=== PATIENT | male | born 1965 | race Caucasian/White ===

== ENCOUNTER → 2016-09-09 | Day surgery (SDC) | payer BC ==
[~2016-09-09] MED LIST: Dextrose 5%-Lactated Ringers 1,000 ML IV SCH; Midazolam 1 MG/ML 2 ML SDV ONE; Propofol 200 MG/20 ML SDV ONE; fentaNYL 100 MCG/2 ML SDV ONE
[2016-09-09 09:00] VITALS: BP 137/66
--- NOTE | 2016-09-14 14:39 | OR ---
DATE OF PROCEDURE: 09/09/2016 PREOPERATIVE DIAGNOSIS: Gastroesophageal reflux disease. POSTOPERATIVE DIAGNOSES: 1. Gastroesophageal reflux disease associated with active esophagitis and a small hiatal hernia. 2. Mild antral gastritis. OPERATIVE PROCEDURE: Esophagogastroduodenoscopy with: 1. Biopsies of antrum for CLOtest. 2. Biopsies of esophagogastric junction for histologic evaluation. ANESTHESIA: IV sedation. INDICATION FOR PROCEDURE: This is a 51-year-old male presenting with worsening problems with gastroesophageal reflux disease associated with some ongoing heartburn as well as bilious emesis from time to time. The patient is presently on Nexium 40 mg b.i.d., i.e., maximum medical treatment. Plan is to proceed with an upper GI endoscopy with biopsies as indicated. Potential risks including bleeding and perforation were discussed, and the patient wishes to proceed. DETAILS OF PROCEDURE: The patient was taken to the operating room and placed in a left lateral decubitus position. IV sedation was administered, after which the upper GI endoscope was passed orally through the length of the esophagus and into the stomach with retroflexion view of the fundus, thereafter through the pyloric channel, and into the proximal duodenum. Findings included normal hypopharynx, larynx, upper esophageal sphincter, and esophageal body. At the EG junction, there was a small hiatal hernia present. This was associated with fairly wide open esophagogastric junction, and there was some moderately active reflux disease indicated by some friability and edema of the distal esophageal mucosa. There was no significant upward extension of the gastroesophageal junction mucosal line above the upper gastric folds and no stricturing present. Within the stomach, there was some mild redness in the pre-pyloric area. Otherwise, the pyloric channel and proximal duodenum and junction of 3rd and 4th portions were unremarkable. At this point, biopsies obtained from the antrum and sent for CLOtest for H. pylori. Multiple biopsies were obtained from esophagogastric junction, sent for histologic evaluation. No bleeding from the biopsy sites were seen, and the procedure was then concluded. The patient was taken to the recovery room in satisfactory condition. The patient would appear to have at this point gastroesophageal reflux disease refractory to medical management. We will see the patient back next Thursday to review the findings and develop a treatment plan, which may include a Franca fundoplication. Joe Downing MD /[id number]
== END ==
LOC: JP.SDS 06:09
PROVIDERS: ATTEND Surgery
DX: K31.89 Other diseases of stomach and duodenum (principal); I10 Essential (primary) hypertension; E11.9 Type 2 diabetes mellitus without complications; J45.909 Unspecified asthma, uncomplicated; K21.9 Gastro-esophageal reflux disease without esophagitis
CPT/HCPCS: 43239; 87081; 88305; J2250; J2704; J3010; J7042

== ENCOUNTER 2017-05-21 05:34 | Inpatient (IN) | payer BC ==
[2017-05-21] MEDS ORDERED: Acetaminophen 500 MG Tab PO ONE (06:00)
[2017-05-21] MEDS ORDERED: Celecoxib 200 MG Cap PO ONE (06:00)
[2017-05-21] MEDS ORDERED: Dextrose 5%-Lactated Ringers 1,000 ML IV SCH ×2 (06:00→12:00)
[2017-05-21] MEDS ORDERED: Gabapentin 300 MG Cap PO ONE (06:00)
[2017-05-21] MEDS ORDERED: Scopolamine 1.5 MG Transdermal Patch TOP SCH (06:00)
[2017-05-21] MEDS ORDERED: cefOXitin 2 GM Vial ONE (06:49)
[2017-05-21] MEDS ORDERED: Albuterol/Ipratropium 3.0-0.5 MG/3 ML Neb Soln NEB ONE (07:00)
[2017-05-21] MEDS ORDERED: Ketamine 500 MG/5 ML MDV IV SCH (07:00)
[2017-05-21] MEDS ORDERED: Lidocaine 2% 100 MG/5 ML Syringe IVPUSH ONE (07:00)
[2017-05-21] MEDS ORDERED: Ropivacaine 58 ML, Dexamethasone 8 MG, EPINEPHrine 0.4 MG, Sodium Chloride 0.9% 19.6 ML NERVRT SCH ×4 (07:00)
[2017-05-21] MEDS ORDERED: cefOXitin 2 GM in Premix Bag 1 BAG IV ONE (07:00)
[2017-05-21] MEDS ORDERED: Rocuronium 50 MG/5 ML Vial ONE ×2 (07:05→08:11)
[2017-05-21] MEDS ORDERED: Propofol 200 MG/20 ML SDV ONE (07:05)
[2017-05-21] MEDS ORDERED: Neostigmine Methylsulfate 1 MG/ML 5 ML Syringe ONE (07:05)
[2017-05-21] MEDS ORDERED: Succinylcholine 200 MG/10 ML MDV ONE (07:05)
[2017-05-21] MEDS ORDERED: Ondansetron 4 MG/2 ML SDV ONE (07:05)
[2017-05-21] MEDS ORDERED: Dexamethasone 4 MG/ML SDV ONE (07:05)
[2017-05-21] MEDS ORDERED: Glycopyrrolate 0.2 MG/ML 5 ML MDV ONE (07:05)
[2017-05-21] MEDS ORDERED: Labetalol 20 MG/4 ML Syringe ONE (07:48)
[2017-05-21] MEDS ORDERED: fentaNYL 100 MCG/2 ML SDV ONE (07:53)
[2017-05-21] MEDS ORDERED: Lactated Ringers 1,000 ML ONE (09:26)
[2017-05-21] MEDS ORDERED: Insulin Aspart 100 Units/ML 3 ML Pen SUBCUT ONE (10:00)
[2017-05-21] MEDS ORDERED: hydrOXYzine HCl 100 MG/2 ML SDV IM ONE (10:24)
[2017-05-21] MEDS ORDERED: 50% Dextrose in Water 50 ML Syringe IVPUSH PRN (12:00)
[2017-05-21] MEDS ORDERED: Ondansetron 4 MG/2 ML SDV IVPUSH PRN (12:00)
[2017-05-21] MEDS ORDERED: Albuterol/Ipratropium 3.0-0.5 MG/3 ML Neb Soln INH PRN (12:00)
[2017-05-21] MEDS ORDERED: Metoclopramide 10 MG/2 ML SDV IVPUSH PRN (12:00)
[2017-05-21] MEDS ORDERED: diphenhydrAMINE 50 MG/ML SDV IVPUSH PRN (12:00)
[2017-05-21] MEDS ORDERED: Glucagon,Human Recombinant 1 MG Vial IM PRN (12:00)
[2017-05-21] MEDS ORDERED: hydrOXYzine HCl 100 MG/2 ML SDV IM PRN (12:00)
[2017-05-21] MEDS ORDERED: Lactated Ringers 1,000 ML IV SCH (12:00)
[2017-05-21] MEDS ORDERED: Labetalol 20 MG/4 ML Syringe IVPUSH PRN (12:00)
[2017-05-21] MEDS: SCOPOLAMINE PATCH TOP SCH (13:00)
[2017-05-21] MEDS: Lidocaine 0.4%/D5W 2 GM/500 ML BAG IV SCH ×2 (14:17→22:53)
[2017-05-21] MEDS: cefOXitin 2 GM in Sodium Chloride 0.9% 50 ML IV SCH ×2 (14:18→19:40)
[2017-05-21] MEDS: Gabapentin 250 MG/5 ML Solution ML 470 ML Bottle PO SCH ×2 (14:18→20:02)
[2017-05-21] MEDS: Acetaminophen Soln 650 MG/20.3 ML UD Cup PO SCH ×2 (14:18→19:40)
[2017-05-21] MEDS: Pantoprazole 40 MG Vial IVPUSH SCH (14:18)
[2017-05-21] MEDS: Albuterol/Ipratropium 3.0-0.5 MG/3 ML Neb Soln INH SCH ×2 (14:37→20:03)
[2017-05-21] MEDS: Heparin Sodium 5,000 Units/ML Vial SUBCUT SCH (15:41)
[2017-05-21] MEDS ORDERED: MVI, Adult with Vitamin K 10 ML, Thiamine 200 MG, Chromium/Copper/Mang/Selen/Zn 1 ML in... IV SCH ×4 (16:00)
[2017-05-21] MEDS: Insulin Aspart 100 Units/ML 3 ML Pen SUBCUT PRN ×2 (16:26→21:30)
[2017-05-21] MEDS ORDERED: Insulin Detemir 100 Units/ML 3 ML Pen SUBCUT ONE (21:00)
[2017-05-22] MEDS: Heparin Sodium 5,000 Units/ML Vial SUBCUT SCH ×3 (00:03→15:44)
[2017-05-22] MEDS: Acetaminophen Soln 650 MG/20.3 ML UD Cup PO SCH ×4 (01:45→21:27)
[2017-05-22] MEDS: cefOXitin 2 GM in Sodium Chloride 0.9% 50 ML IV SCH ×3 (01:45→13:59)
[2017-05-22] MEDS ORDERED: Iohexol 647 MG/ML 50 ML SDV PO STA (01:46)
[2017-05-22] MEDS: Insulin Aspart 100 Units/ML 3 ML Pen SUBCUT PRN ×2 (04:56→10:30)
[2017-05-22] MEDS: Albuterol/Ipratropium 3.0-0.5 MG/3 ML Neb Soln INH SCH ×4 (07:01→21:28)
[2017-05-22] MEDS ORDERED: Insulin Detemir 100 Units/ML 3 ML Pen SUBCUT ONE ×2 (08:30→21:00)
[2017-05-22] MEDS: Celecoxib 200 MG Cap PO SCH (08:36)
--- NOTE | 2017-05-22 08:44 | CR ---
Surgical drain left upper quadrant. Contrast at the GE junction. Contrast opacifies multiple small carin wel loops.
[2017-05-22] MEDS ORDERED: Non-Formulary Medication 1 Each (Metformin [Glucophage] 1,000 MG) PO SCH (09:00)
[2017-05-22] MEDS ORDERED: Metoprolol Succinate 50 MG Tab.ER PO SCH (09:00)
[2017-05-22] MEDS: Aspirin 325 MG Tab.EC PO SCH (09:01)
[2017-05-22] MEDS: metFORMIN 500 MG Tab PO SCH (09:01)
[2017-05-22] MEDS: Gabapentin 250 MG/5 ML Solution ML 470 ML Bottle PO SCH ×3 (09:01→21:29)
[2017-05-22] MEDS: SCOPOLAMINE PATCH TOP SCH (09:02)
[2017-05-22] MEDS: Metoprolol Succinate 50 MG Tab.ER PO SCH (09:02)
[2017-05-22] MEDS: Allopurinol 300 MG Tab PO SCH (09:02)
--- NOTE | 2017-05-22 09:39 | PN ---
DATE OF SERVICE: 05/22/2017 SUBJECTIVE: Ward is postop day 1. He has been up ambulating. States his pain is controlled and vital signs have been stable. Oral intake 246 on CHRISSY drain, put out 125 mL of a light pink serosanguineous drainage and he has had 1 bowel movement. REVIEW OF SYSTEMS: Remainder of review of systems negative for any pertinent positives or negatives. Blood sugars after surgery 241, 309, 327, 266, 327, and 266. He got 30 units of Levemir last evening. OBJECTIVE: GENERAL: Ward is a 52-year-old male, alert, orientated. SKIN: Warm and dry. VITAL SIGNS: TPR 98.8, 99, 16. Blood pressure 160/82. HEENT: Negative. NECK: Supple. HEART: Regular rate and rhythm. LUNGS: Clear. ABDOMEN: Dressings dry and intact. CHRISSY drain intact. Draining a pink serosanguineous drainage. EXTREMITIES: Without peripheral edema and SCDs are on. ASSESSMENT: Laparoscopic Saadia-en-Y gastric bypass surgery, liver biopsy, small bowel resection, repair of diaphragmatic hernia, and excision of mediastinal lipoma for morbid obesity, hepatomegaly, foreshortened small bowel mesenteric-diaphragmatic hernia, mediastinal lipoma. Date of surgery 05/21/2017. PLAN: 1. Give Levemir 30 units subcu now. 2. Discontinue D5 LR. 3. Lactated Ringer IV 100 mL per hour. 4. Step 2 gastric bypass diet with no cereal. 5. Levemir 25 units at bedtime. 6. Magnesium 2 g IV q.6 hours x72 hours. 7. Albuterol inhaler 2 puffs q.i.d. p.r.n. 8. Zyloprim (allopurinol) 300 mg p.o. daily. 9. Ecotrin 325 mg p.o. daily. 10.Lotensin 20 mg p.o. daily. 11.Metformin 1000 mg p.o. daily. 12.Metoprolol succinate 50 mg p.o. daily. 13.Dressing off. October shower. 14.Good pulmonary toilet. 15.We will evaluate p.r.n. or in a.m. Brittny Ellis PA-C /[id number]
[2017-05-22] MEDS ORDERED: Albuterol 8 GM Inhaler INH PRN (10:00)
[2017-05-22] MEDS: Magnesium Sulfate/Water 2 GM in Premix Bag 1 BAG IV SCH ×3 (11:32→21:29)
[2017-05-22] MEDS: Lactated Ringers 1,000 ML IV SCH (12:55)
[2017-05-22] MEDS: Pantoprazole 40 MG Vial IVPUSH SCH (14:00)
[2017-05-22] MEDS ORDERED: MVI, Adult with Vitamin K 10 ML, Thiamine 200 MG, Chromium/Copper/Mang/Selen/Zn 1 ML in... IV SCH ×4 (16:00)
[2017-05-23] MEDS: Heparin Sodium 5,000 Units/ML Vial SUBCUT SCH ×2 (01:44→08:53)
[2017-05-23] MEDS: Acetaminophen Soln 650 MG/20.3 ML UD Cup PO SCH ×2 (01:44→08:54)
[2017-05-23] MEDS: Lactated Ringers 1,000 ML IV SCH (01:46)
[2017-05-23] MEDS: Magnesium Sulfate/Water 2 GM in Premix Bag 1 BAG IV SCH (03:28)
[2017-05-23 07:51] VITALS: BP 154/82
[2017-05-23] MEDS: Albuterol/Ipratropium 3.0-0.5 MG/3 ML Neb Soln INH SCH (08:22)
[2017-05-23] MEDS: Celecoxib 200 MG Cap PO SCH (08:53)
[2017-05-23] MEDS: metFORMIN 500 MG Tab PO SCH (08:54)
[2017-05-23] MEDS: Aspirin 325 MG Tab.EC PO SCH (08:54)
[2017-05-23] MEDS: Metoprolol Succinate 50 MG Tab.ER PO SCH (08:55)
[2017-05-23] MEDS: Allopurinol 300 MG Tab PO SCH (08:55)
[2017-05-23] MEDS: Gabapentin 250 MG/5 ML Solution ML 470 ML Bottle PO SCH (08:59)
[2017-05-23] MEDS ORDERED: Cyanocobalamin (Vitamin B12) 1,000 MCG/ML SDV IM ONE (09:00)
[2017-05-23] MEDS ORDERED: Pantoprazole 40 MG Delayed-Release Granules 1 Packet PO SCH (11:30)
--- NOTE | 2017-05-25 11:21 | OR ---
DATE OF PROCEDURE: 05/21/2017 PREOPERATIVE DIAGNOSIS: Morbid obesity. POSTOPERATIVE DIAGNOSES: 1. Morbid obesity. 2. Quite marked hepatomegaly with dense fatty infiltration of liver. 3. Foreshortened small bowel mesentery. 4. Diaphragmatic hernia. 5. Mediastinal lipoma. OPERATIVE PROCEDURE: Diagnostic laparoscopy with: 1. Saadia-en-Y gastric bypass with long limb gastroenterostomy (49969). 2. Vern-Cut needle liver biopsy (08982). 3. Small-bowel resection to facilitate mobility of jejunojejunostomy to allow tension-free gastrojejunostomy (49838). 4. Repair of paraesophageal diaphragmatic hernia (37171). 5. Excision of mediastinal lipoma (00082). ANESTHESIA: General. CONTENT DEVELOPMENT MANAGER: Brittny Ellis PA-C. INDICATIONS FOR PROCEDURE: This is a 52-year-old male presenting with longstanding morbid obesity and increasingly significant comorbidities. This includes quite significant metabolic syndrome with poorly-controlled type 2 diabetes as well as extremely abnormal lipid profile. Plan is to proceed with a Saadia-en-Y gastric bypass. Potential risks of the procedure including bleeding, infection, leaks from various GI tract closures, problems with bowel obstruction over time as well as possibility of cardiopulmonary, septic, or hemorrhagic complications leading to were discussed, and the patient wishes to proceed. DETAILS OF PROCEDURE: The patient was taken to the operating room, placed in a supine position. After general endotracheal anesthesia was induced, the orogastric tube was placed, and the abdomen prepped and draped. At 15 cm inferior, 5 cm left of xiphoid process, a transverse incision was made, the peritoneal cavity entered under direct vision with an Optiview trocar, inflated to 15 mmHg pressure with CO2. At this point, with direct vision of the placement of the needle from within, bilateral subcostal transverse abdominis plane blocks were placed using standard solution. Once these were completed, 5 additional trocars were placed across the upper mid abdomen. The general exploration found a quite strikingly fatty infiltrated liver. Vern-Cut biopsies were obtained from the left lobe of the liver. Minimal bleeding from the biopsy site was noted. At this point, the omentum was divided in the midline at the level of the transverse colon. This allowed identification of the small bowel to the ligament of Treitz. Small bowel was then traced out 200 cm distal to that point where it was divided with the SALLY stapler. The mesentery at this level was noted to be quite thickened and relatively immobile and to facilitate a more mobile jejunojejunostomy which would in turn result in a relatively tension-free gastrojejunostomy, roughly 10 cm of the small bowel on the biliopancreatic limb side was excised and essentially divided with a SALLY stapler, the underlying mesentery then divided with Harmonic scalpel, and specimen delivered from the field. At this point, the small bowel was traced out distally 150 cm where the [id number] enteroenterostomy was accomplished with internal firing of the Endo-SALLY 60 mm stapler. The common opening was then closed transversely with the same stapler and the angle was anastomosed, and mesenteric defect approximated with some 0 Ethibond stitch along with 4 mL of fibrin sealant. The divided end of the Saadia limb was then from the mesentery for a few centimeters, which allowed an antecolic position of the Saadia limb up to the level of the gastroesophageal junction without tension. The liver was then retracted anteriorly. The patient was noted to have a moderate-sized paraesophageal diaphragmatic hernia consistent with his known reflux, this included prolapse of perigastric fat along with the tongue of omentum in the plane anterior to the course of the esophagus. The hernia was reduced and the peritoneum overlying it was incised and reflected downward. An anterior repair of the diaphragmatic hernia was then accomplished with some 0 Ethibond sutures reinforced with PTFE pledgets. During the course of this dissection, a mediastinal lipoma was encountered, which was then excised and sent as a separate specimen. At this point, the gastrointestinal balloon catheter was inflated to 15 mL and pulled up snugly against the EG junction. Gastric wall over the apex balloon was then marked with electrocautery, and balloon catheter deflated and pulled up in the esophagus. The lesser omental tissue adjacent to gastric cardia was then incised allowing dissection behind the stomach at that level. Pouch formation was initiated with a transverse firing of the SALLY stapler. The pouch was then completed with 2 additional firings of SALLY stapler up to and through the angle of His. Upon completion of the pouch, both staple lines were noted to be intact. The anvil of a 25-mm EEA stapler was then attached to a [place] sump type tube. The latter was brought down through the mouth and taken out through a small opening in the gastric pouch allowing the anvil likewise to be pulled down to within the gastric pouch. The divided end of the Saadia limb was opened and the main body of the EEA stapler was passed several centimeters into the lumen of the small bowel, brought up the anvil and united with it, thus creating a gastrojejunostomy. Upon removal of the stapler, double donuts of mucosa were noted within it. The small bowel was closed off with a vascular staple line. Gastrojejunostomy was reinforced with some 3-0 Vicryl seromuscular stitch along with fibrin sealant. A leak test was accomplished with injection of 120 mL of air in the gastric pouch while submerged with cefoxitin-containing saline solution. No leaks were identified. A single Kumar-Gmoes drain was taken out through the left lateral trocar site and positioned adjacent to the gastrojejunostomy and from there up into the area of the splenic fossa. The trocars were then sequentially removed and the peritoneal cavity deflated. Incisions were closed with some 4-0 Vicryl skin stitch which was also used to fix the drain, and at that point, no further problems were noted. The patient was taken to the recovery room in satisfactory condition. Physician offset press assistant, Brittny Ellis, played an essential role in assisting in this case, helping to position the patient, retract structures as needed, as well as suturing and cutting sutures as indicated. Her presence improved patient safety and decreased the operative time. Joe Downing MD /[id number]
--- NOTE | 2017-05-25 11:48 | DISCH ---
FINAL DIAGNOSES: 1. Morbid obesity. 2. Marked hepatomegaly with intensely fatty infiltrated liver. 3. Immobile small bowel requiring small bowel resection to facilitate mobility to create gastrojejunostomy. 4. Diaphragmatic hernia. 5. Mediastinal lipoma. 6. Hypomagnesemia. 7. History of asthma. 8. Hyperlipidemia. 9. History of gout. 10.History of hypertension. OPERATIVE PROCEDURE: Done on 05/21/2017, diagnostic laparoscopy with: 1. Laparoscopic Saadia-en-Y gastric bypass with long limb gastroenterostomy. 2. Vern-Cut needle liver biopsy. 3. Small bowel resection to facilitate mobility of the jejunojejunostomy in order to create tension-free gastrojejunostomy. 4. Repair of diaphragmatic hernia. 5. Excision of mediastinal lipoma. HOSPITAL COURSE: This is a 52-year-old male presenting with quite severe metabolic syndrome with poorly-controlled type 2 diabetes mellitus, as well as markedly abnormal lipid profile. On date of admission, the patient underwent a laparoscopic Saadia-en-Y gastric bypass with the above-added procedures. Postoperatively, he has had a smooth course and tolerating the step- 2 diet satisfactorily. He will be discharged home at this point. The medications will be adjusted as per the medication reconciliation sheet. The patient, prior to admission, was on metformin 1000 mg daily and Toujeo 55 units at bedtime. He will be discharged home now with metformin 1000 mg b.i.d. and we will have him start the Toujeo at 20 units at bedtime and have him adjust that up or down on a daily basis, trying to keep the blood sugars in the 100 to 200 range. He will bring the blood sugar log to his appointment. He is tolerating oral pain medication, including Celebrex and Tylenol, without additional medications, and followup will be with Brittny Ellis at [facility] on , 05/28/2017. The patient's magnesium level was checked preoperatively, and it was 1.4. He will be sent home with a 90-day supply of magnesium oxide 400 mg a day, and that should be rechecked in time. Additionally with the patient's high lipids, a lipid profile should be checked with each of the bariatric labs sets. If, after correction of his diabetes, these remain markedly abnormal on the present set of medications (niacin, gemfibrozil, and cholestyramine), a consultation will be obtained to probably add some additional agents for treatment of hyperlipidemia.
== END 2017-05-23 10:50 | disposition home or self-care (01) | DRG 403 ==
LOC: JP.SDS 05:34 → JP.MS 08:34 → JP.2SS 09:50 → EDSTATUS 13:00
PROVIDERS: ADMIT Surgery; ATTEND Surgery
PROC: 0D164ZA Bypass Stomach to Jejunum, Percutaneous Endoscopic Approach (ICD-10-PCS; principal; 2017-05-21)
PROC: 0FB24ZX Excision of Left Lobe Liver, Percutaneous Endoscopic Approach, Diagnostic (ICD-10-PCS; 2017-05-21)
PROC: 0WBC4ZX Excision of Mediastinum, Percutaneous Endoscopic Approach, Diagnostic (ICD-10-PCS; 2017-05-21)
PROC: 3E0T3BZ Introduction of Anesthetic Agent into Peripheral Nerves and Plexi, Percutaneous Approach (ICD-10-PCS; 2017-05-21)
PROC: 0DB84ZX Excision of Small Intestine, Percutaneous Endoscopic Approach, Diagnostic (ICD-10-PCS; 2017-05-21)
PROC: 0BQT4ZZ Repair Diaphragm, Percutaneous Endoscopic Approach (ICD-10-PCS; 2017-05-21)
DX: E66.01 Morbid (severe) obesity due to excess calories (principal); Z68.37 Body mass index [BMI] 37.0-37.9, adult; R16.0 Hepatomegaly, not elsewhere classified; K76.0 Fatty (change of) liver, not elsewhere classified; D17.4 Benign lipomatous neoplasm of intrathoracic organs; K44.9 Diaphragmatic hernia without obstruction or gangrene; I12.9 Hypertensive chronic kidney disease with stage 1 through stage 4 chronic kidney disease, or unspecified chronic kidney disease; E11.22 Type 2 diabetes mellitus with diabetic chronic kidney disease; E11.65 Type 2 diabetes mellitus with hyperglycemia; N18.4 Chronic kidney disease, stage 4 (severe); Z79.4 Long term (current) use of insulin; E78.00 Pure hypercholesterolemia, unspecified; M10.9 Gout, unspecified; K21.9 Gastro-esophageal reflux disease without esophagitis; E11.40 Type 2 diabetes mellitus with diabetic neuropathy, unspecified; Z79.82 Long term (current) use of aspirin; K59.8 Other specified functional intestinal disorders; E83.42 Hypomagnesemia
CPT/HCPCS: 36415; 74240; 74240-26; 80053; 80061; 82962; 83036; 83735; 83880; 84100; 85025; 86850; 86900; 86901; 88304; 88307; 88313; 94640; A9270-GY; C9113; J0171; J0330; J0694; J1100; J1644; J2001; J2405; J2704; J2710; J2795; J3010; J3410; J3411; J3420; J3475; J7030; J7040; J7042; J7050; J7120; J7620; Q9967

== ENCOUNTER 2019-06-14 07:39 | Day surgery (SDC) | payer BC ==
[2019-06-14] MEDS ORDERED: Dextrose 5%-Lactated Ringers 1,000 ML IV SCH (08:30)
[2019-06-14] MEDS ORDERED: Propofol 200 MG/20 ML SDV ONE ×2 (09:47→10:15)
[2019-06-14] MEDS ORDERED: fentaNYL 100 MCG/2 ML SDV ONE (09:47)
[2019-06-14] MEDS ORDERED: Midazolam 1 MG/ML 2 ML SDV ONE (09:47)
[2019-06-14 11:36] VITALS: BP 130/91; PULSE 61
--- NOTE | 2019-06-16 16:25 | OR ---
DATE OF PROCEDURE: 06/14/2019 SURGEON: Joe Downing MD PREOPERATIVE DIAGNOSIS: Indications for screening colonoscopy with history of previous colon polyps. POSTOPERATIVE DIAGNOSIS: Normal colonic exam with no recurrent polyps. OPERATIVE PROCEDURE: Screening colonoscopy. ANESTHESIA: IV sedation. INDICATION FOR PROCEDURE: This 54-year-old is presenting with history of colon polyps and is due for colonoscopy with biopsies and/or polypectomies at this time. Potential risks including bleeding and perforation were discussed, and the patient wishes to proceed. DETAILS OF PROCEDURE: The patient was taken to the operating room and placed in a left lateral decubitus position. IV sedation was administered, after which, the initial digital rectal exam was performed and was unremarkable. Colonoscope was then passed into the rectum with retroflexion revealing uncomplicated hemorrhoidal columns. The scope was then eventually passed to the cecum. The prep was quite good with only small amount of liquid stool present. The patient was noted to have no areas of diverticular disease, no areas of colitis, and no recurrent polyps or other signs of neoplasia. The scope was then withdrawn, the above findings reconfirmed, and the procedure concluded. The patient was taken to the recovery room in satisfactory condition. With the patient's personal history of colon polyps, his next colonoscopy should be scheduled in 5 years. Joe Downing MD /[id number]
== END 2019-06-14 11:40 | disposition home or self-care (01) ==
LOC: JP.SDS 07:39
PROVIDERS: ATTEND Surgery
DX: Z12.11 Encounter for screening for malignant neoplasm of colon (principal); K64.9 Unspecified hemorrhoids; K90.9 Intestinal malabsorption, unspecified; K21.9 Gastro-esophageal reflux disease without esophagitis; I10 Essential (primary) hypertension; E78.5 Hyperlipidemia, unspecified; E11.9 Type 2 diabetes mellitus without complications; Z86.010 Personal history of colon polyps
CPT/HCPCS: 45378; J2250; J2704; J3010; J7121